=== PATIENT | female | born 1990 | race Caucasian/White ===

== ENCOUNTER 2016-10-02 17:30 | Emergency (ER) | payer MEDICAID ==
[~2016-10-02] VITALS: Ht 152.4 cm; Wt 51.0 kg
[2016-10-02 17:43] VITALS: BP 130/65
[2016-10-02] MEDS ORDERED: ACETAMINOPHEN 325MG TABLET PO STA (23:10)
[2016-10-02 23:43] LABS: BASOPHILS % 0.3 % (0.0-2.0); HEMATOCRIT. 37.8 % (36.0-48.0); HEMOGLOBIN. 12.5 g/dL (12.0-16.0); LYMPHOCYTES % 43.7 % (20.0-50.0); MEAN CORPUSCULAR HEMOGLOBIN 28.1 pg (28.0-32.0); MEAN CORPUSCULAR VOLUME 84.7 fL (81.0-99.0); MEAN PLATELET VOLUME 9.4 fl (7.4-10.4); MONOCYTES % 9.3 % (2.0-8.0); NEUTROPHILS % 45.7 % (40.0-76.0); PLATELET 191 x1000/uL (130-400); RED BLOOD CELL COUNT 4.47 mill/uL (4.2-5.4); RED CELL DISTRIBUTION WIDTH 14.6 % (11.6-14.6)
[2016-10-02 23:48] LABS: HCG SCREEN NEGATIVE
[2016-10-02 23:50] LABS: CARBON DIOXIDE 29 mEq/L (21-32); CHLORIDE 105 mEq/L (98-107)
[2016-10-03 01:06] LABS: CLARITY URINE CLEAR (CLEAR); COLOR URINE YELLOW (YELLOW); GLUCOSE URINE NEGATIVE (NEGATIVE); KETONES URINE NEGATIVE (NEGATIVE); LEUKOCYTE ESTERASE URINE NEGATIVE (NEGATIVE); NITRITE URINE NEGATIVE (NEGATIVE); OCCULT BLOOD URINE NEGATIVE (NEGATIVE); PH URINE 7.5 (4.5-8.0); PROTEIN URINE NEGATIVE (NEGATIVE); SPECIFIC GRAVITY URINE 1.024 (1.005-1.030)
== END 2016-10-03 01:30 | disposition home or self-care (01) ==
LOC: ER 17:30
DX: S30.0XXA Contusion of lower back and pelvis, initial encounter (principal); S90.31XA Contusion of right foot, initial encounter; V49.49XA Driver injured in collision with other motor vehicles in traffic accident, initial encounter; R03.0 Elevated blood-pressure reading, without diagnosis of hypertension; Y93.89 Activity, other specified; Y92.410 Unspecified street and highway as the place of occurrence of the external cause; N93.9 Abnormal uterine and vaginal bleeding, unspecified; R30.0 Dysuria; N83.209 Unspecified ovarian cyst, unspecified side
CPT/HCPCS: 36415; 76830; 76856; 80048; 81003; 84703; 85025; 99285